=== PATIENT | male | born 1995 | race African-American/Black ===

== ENCOUNTER 2020-03-27 08:17 | Emergency (ER) | payer SELFPAY ==
[~2020-03-27] VITALS: Ht 185.4 cm; Wt 104.3 kg
[2020-03-27] MEDS ORDERED: SODIUM CHLORIDE 0.9% 1,000 ML IV ONE ×3 (08:42→09:51)
[2020-03-27 09:13] LABS: Basophils # (auto) 0.1 10 ^3/uL (0-0.2); Basophils % (auto) 0.6 % (0.0-2.0); Eosinophils # (auto) 0 10 ^3/uL (0-0.8); Eosinophils % (auto) 0.1 % (0.0-7.0); Hematocrit 50.7 % (41.0-53.0); Hemoglobin 16.8 g/dL (13.5-17.5); Lymphocytes # (auto) 0.9 10 ^3/uL (0.4-5.4); Lymphocytes % (auto) 5.8 % (10.0-50.0); Mean Corpuscular Hemoglobin 30.3 pg (28.0-32.0); Mean Corpuscular Hgb Conc. 33.2 g/dL (32.0-36.0); Mean Corpuscular Volume 91.1 fL (80.0-100.0); Monocytes # (auto) 0.8 10 ^3/uL (0-1.3); Monocytes % (auto) 5.3 % (0.0-12.0); Neutrophils # (auto) 13.3 10 ^3/uL (1.6-8.6); Neutrophils % (auto) 88.2 % (37.0-80.0); Platelet Count (auto) 233 10^3/uL (140-450); Red Blood Cells 5.56 10^6/uL (4.5-5.90); Red Cell Distribution Width 12.9 % (11.8-14.3); White Blood Cell 15.1 10^3/uL (4.4-10.8)
[2020-03-27 09:34] LABS: Albumin 4.4 g/dL (3.4-5.0); Anion Gap 6 (5-15); Blood Urea Nitrogen 14 mg/dL (7-18); Carbon Dioxide 26 mmol/L (21-32); Chloride 107 mmol/L (98-107); Glucose 121 mg/dL (74-106); Potassium 3.1 mmol/L (3.5-5.1); Sodium 139 mmol/L (136-145)
[2020-03-27 09:40] LABS: Alanine Aminotransferase 38 U/L (16-61); Alkaline Phosphatase 87 U/L (45-117); Aspartate Aminotransferase 28 U/L (15-37); Bilirubin, Total 0.8 mg/dL (0.2-1.0); GFR African American 90 mL/min; GFR Non-African American 75 mL/min
[2020-03-27] MEDS ORDERED: SODIUM CHLORIDE 0.9% 1,000 ML IVB ONE (09:51)
[2020-03-27] MEDS ORDERED: cefTRIAXone 1GM/50ML D5W 50 ML IV ONE (10:00)
[2020-03-27] MEDS ORDERED: metroNIDAZOLE 500MG/100ML 100 ML IV ONE (10:00)
[2020-03-27] MEDS ORDERED: POTASSIUM EFFERVESENT TAB 25 MEQ PO ONE (11:15)
[2020-03-27 12:26] LABS: Urine Bacteria NONE SEEN /hpf (None Seen); Urine Blood Negative /uL (Negative); Urine Specific Gravity 1.013 (1.001-1.035); Urine WBC 26 /hpf (0 - 3)
[2020-03-27 12:37] LABS: Alcohol, Urine < 3.0 mg/dL (0-10); Amphetamine Screen, Urine NEGATIVE (NEGATIVE); Barbiturate Scree,Urine NEGATIVE (NEGATIVE); Benzodiazephine Screen, Urine NEGATIVE (NEGATIVE); Cannabinoid Screen, Urine POSITIVE (NEGATIVE); Cocaine Screen, Urine NEGATIVE (NEGATIVE); Opiate Scree,Urine NEGATIVE (NEGATIVE); Phencyclidine Screen, Urine NEGATIVE (NEGATIVE)
[2020-03-27] MEDS ORDERED: ONDANSETRON HCL 4 MG/2 ML VIAL ONE (14:36)
[2020-03-27] MEDS ORDERED: ONDANSETRON HCL 4 MG/2 ML VIAL IV ONE (14:45)
[2020-03-27 15:10] VITALS: BP 138/82
== END 2020-03-27 15:26 | disposition home or self-care (01) ==
LOC: EDBD 08:17 → ER 08:17
DX: E86.0 Dehydration (principal); E87.6 Hypokalemia; D72.829 Elevated white blood cell count, unspecified; F12.20 Cannabis dependence, uncomplicated; W18.39XA Other fall on same level, initial encounter; Y93.E1 Activity, personal bathing and showering; Y92.89 Other specified places as the place of occurrence of the external cause; Y99.8 Other external cause status
CPT/HCPCS: 36415; 70450; 71045; 80053; 80307; 80320; 81001; 84484; 85025; 96361; 96365; 96368; 96375; 99285; J0696; J2405; J3490

== ENCOUNTER 2020-06-30 03:14 | Emergency (ER) | payer SELFPAY ==
[~2020-06-30] VITALS: Ht 188 cm; Wt 97.5 kg
[2020-06-30] MEDS ORDERED: LORazepam 2MG/ML-1ML VIAL IV ONE (03:30)
[2020-06-30 03:45] LABS: Urine WBC None Seen /hpf (0 - 3)
[2020-06-30] MEDS ORDERED: levETIRAcetam 500 MG/5ML INJ IV ONE (03:50)
[2020-06-30 03:54] LABS: Eosinophils # (auto) 0.2 10 ^3/uL (0-0.8); Lymphocytes # (auto) 5.7 10 ^3/uL (0.4-5.4); Mean Corpuscular Hemoglobin 30.8 pg (28.0-32.0); Monocytes # (auto) 1.4 10 ^3/uL (0-1.3)
[2020-06-30 03:57] LABS: Urine Bacteria NONE SEEN /hpf (None Seen); Urine Blood 2+ /uL (Negative); Urine Mucus FEW (None Seen); Urine Specific Gravity 1.012 (1.001-1.035)
[2020-06-30 04:13] LABS: Albumin 5.5 g/dL (3.4-5.0); Basophils # (auto) 0.1 10 ^3/uL (0-0.2); Basophils % (auto) 0.3 % (0.0-2.0); Calcium 9.6 mg/dL (8.5-10.1); Eosinophils % (auto) 0.6 % (0.0-7.0); Hematocrit 56.4 % (41.0-53.0); Hemoglobin 17.7 g/dL (13.5-17.5); Mean Corpuscular Hgb Conc. 31.5 g/dL (32.0-36.0); Neutrophils # (auto) 19.7 10 ^3/uL (1.6-8.6); Neutrophils % (auto) 73.1 % (37.0-80.0); Nucleated Red Blood Cells % 0.2 %; Platelet Count (auto) 336 10^3/uL (140-450); Potassium 4.3 mmol/L (3.5-5.1); Red Blood Cells 5.75 10^6/uL (4.5-5.90); Red Cell Distribution Width 13.6 % (11.8-14.3)
[2020-06-30 04:19] LABS: BUN/Creatinine Ratio 7.4; Bilirubin, Total 0.9 mg/dL (0.2-1.0); Total Protein 9.2 g/dL (6.4-8.2)
[2020-06-30 06:00] VITALS: BP 129/70
== END 2020-06-30 06:30 | disposition home or self-care (01) ==
LOC: EDUNIT# 03:14 → EDBD 03:14 → ER 03:17
DX: G40.409 Other generalized epilepsy and epileptic syndromes, not intractable, without status epilepticus (principal)
CPT/HCPCS: 36415; 70450; 80053; 81001; 85025; 93005; 96365; 96375; 99285; J1953; J2060; J7060

== ENCOUNTER 2022-05-20 02:57 | Emergency (ER) | payer SELFPAY ==
[~2022-05-20] VITALS: Ht 177.8 cm; Wt 104.5 kg
[2022-05-20] MEDS ORDERED: levETIRAcetam 500 MG/5ML INJ IV ONE (05:48)
[2022-05-20 06:43] LABS: Albumin 4.1 g/dL (3.4-5.0); Calcium 8.6 mg/dL (8.5-10.1); Potassium 3.3 mmol/L (3.5-5.1)
[2022-05-20 06:47] LABS: BUN/Creatinine Ratio 10.7; Bilirubin, Total 0.7 mg/dL (0.2-1.0); Total Protein 7.2 g/dL (6.4-8.2)
[2022-05-20 07:01] LABS: Basophils # (auto) 0.1 10 ^3/uL (0-0.2); Basophils % (auto) 0.6 % (0.0-2.0); Eosinophils # (auto) 0 10 ^3/uL (0-0.8); Eosinophils % (auto) 0.1 % (0.0-7.0); Hematocrit 48.9 % (41.0-53.0); Hemoglobin 16.1 g/dL (13.5-17.5); Lymphocytes # (auto) 1.1 10 ^3/uL (0.4-5.4); Lymphocytes % (auto) 6.8 % (10.0-50.0); Mean Corpuscular Hemoglobin 30.3 pg (28.0-32.0); Mean Corpuscular Hgb Conc. 32.9 g/dL (32.0-36.0); Mean Corpuscular Volume 92.2 fL (80.0-100.0); Monocytes # (auto) 1.1 10 ^3/uL (0-1.3); Monocytes % (auto) 6.7 % (0.0-12.0); Neutrophils # (auto) 13.8 10 ^3/uL (1.6-8.6); Neutrophils % (auto) 85.8 % (37.0-80.0); Red Cell Distribution Width 12.7 % (11.8-14.3); White Blood Cell 16.1 10^3/uL (4.4-10.8)
[2022-05-20] MEDS ORDERED: LEVE500T32 PO (07:32)
[2022-05-20 07:37] VITALS: BP 124/93
== END 2022-05-20 07:45 | disposition home or self-care (01) ==
LOC: EDBD 02:57 → ER 02:57
DX: G40.409 Other generalized epilepsy and epileptic syndromes, not intractable, without status epilepticus (principal)
CPT/HCPCS: 36415; 70450; 80053; 85025; 96365; 99284; J1953; J7060

== ENCOUNTER 2023-01-30 18:10 | Inpatient (IN) | payer MEDICAID, OTHER ==
[~2023-01-30] VITALS: Ht 188 cm; Wt 109.0 kg
[~2023-01-30 18:10] MED LIST: LEVE500T32 PO
[2023-01-30] MEDS ORDERED: SODIUM CHLORIDE 0.9% 1,000 ML IV ONE (18:45)
[2023-01-30 19:33] LABS: Hematocrit 50.1 % (41.0-53.0); Hemoglobin 16.9 g/dL (13.5-17.5); Mean Corpuscular Hemoglobin 30.6 pg (28.0-32.0); Mean Corpuscular Hgb Conc. 33.6 g/dL (32.0-36.0); Mean Corpuscular Volume 90.9 fL (80.0-100.0); Red Blood Cells 5.52 10^6/uL (4.5-5.90); Red Cell Distribution Width 12.7 % (11.8-14.3)
[2023-01-30] MEDS ORDERED: HALOPERIDOL LACTATE 5 MG/ML INJ VIAL IM ONE (19:45)
[2023-01-30] MEDS ORDERED: LORazepam 2MG/ML-1ML VIAL IM ONE (19:45)
[2023-01-30] MEDS ORDERED: diphenhdrAMINE HCL 50 MG/1 ML VL IM ONE (19:45)
[2023-01-30 19:46] LABS: INR 0.99 (0.9-1.15)
[2023-01-30 19:49] LABS: White Blood Cell 32.6 10^3/uL (4.4-10.8)
[2023-01-30 19:50] LABS: Basophils % (manual) 0 (0.0-2.0); Blast Cells 0; Eosinophils % (manual) 0 (0-7); Metamyelocytes % 0; Myelocytes % 0; Promyelocytes % 0; Reactive Lymphocytes 0
[2023-01-30 19:51] LABS: Alanine Aminotransferase 57 U/L (16-61); Albumin 4.5 g/dL (3.4-5.0); Anion Gap 12 (5-15); Aspartate Aminotransferase 103 U/L (15-37); BUN/Creatinine Ratio 10.2 (10.0-20.0); Blood Alcohol < 3.0 mg/dL (0-5); Blood Urea Nitrogen 21 mg/dL (7-18); Calcium 8.9 mg/dL (8.5-10.1); Carbon Dioxide 20 mmol/L (21-32); Chloride 108 mmol/L (98-107); GFR African American 50 mL/min; GFR Non-African American 42 mL/min; Glucose 97 mg/dL (74-106); Lipase 52 U/L (73-393); Magnesium 3.4 mg/dL (1.6-2.6); Potassium 4.7 mmol/L (3.5-5.1); Sodium 140 mmol/L (136-145)
[2023-01-30 19:54] LABS: Alkaline Phosphatase 72 U/L (45-117); Bilirubin, Total 1.2 mg/dL (0.2-1.0); Phosphorus 4.7 mg/dL (2.5-4.90); Total Protein 7.8 g/dL (6.4-8.2)
[2023-01-30 20:07] LABS: Acetaminophen < 2.0 ug/mL (10-30); Salicylate < 1.7 mg/dL (2.8-20.0)
[2023-01-30 20:19] LABS: Band Neutrophils % (manual) 8; Lymphocytes % (manual) 5 (10.0-50.0); Monocytes % (manual) 6 (0-12)
[2023-01-30] MEDS ORDERED: ASPirin 300 MG RECTAL SUPP PR ONE (20:30)
[2023-01-30] MEDS ORDERED: LORazepam 2MG/ML-1ML VIAL IV ONE ×2 (20:45)
[2023-01-30] MEDS ORDERED: KETAMINE 50mg/ML 10ml Vial (500mg/10ml) IM ONE ×2 (20:45→21:15)
[2023-01-30] MEDS ORDERED: SODIUM CHLORIDE 0.9% 3,450 ML IV ONE (21:15)
[2023-01-30] MEDS ORDERED: VANCOMYCIN PER PHARMACY 0 MG IV SCH (22:30)
[2023-01-30] MEDS ORDERED: cefTRIAXone 1GM/50ML D5W 50 ML IV ONE (22:30)
[2023-01-30] MEDS ORDERED: MORPHINE SULFATE INJ 2 MG/ml SYRG IV PRN (23:00)
[2023-01-30] MEDS ORDERED: VANCOMYCIN 1GM/250ML 250 ML IV NR (23:00)
[2023-01-30] MEDS ORDERED: NITROGLYCERIN 0.4 MG SL TAB SL PRN (23:00)
[2023-01-30] MEDS ORDERED: ONDANSETRON HCL 4 MG/2 ML VIAL IV PRN (23:00)
[2023-01-31] MEDS: SODIUM CHLORIDE 0.9% 1,000 ML IV SCH ×5 (03:35→22:05)
[2023-01-31 06:01] LABS: Urine Bacteria NONE SEEN /hpf (None Seen); Urine Blood 3+ /uL (Negative); Urine Specific Gravity 1.013 (1.001-1.035); Urine WBC 10 /hpf (0 - 3)
[2023-01-31] MEDS: HEPARIN SODIUM (PORCINE) 5000 UNITS/ML 1ML VIAL SC SCH ×3 (06:03→22:11)
[2023-01-31 06:44] LABS: Basophils # (auto) 0.3 10 ^3/uL (0-0.2); Basophils % (auto) 1.2 % (0.0-2.0); Eosinophils # (auto) 0 10 ^3/uL (0-0.8); Hematocrit 46.2 % (41.0-53.0); Hemoglobin 15.5 g/dL (13.5-17.5); Lymphocytes # (auto) 1.6 10 ^3/uL (0.4-5.4); Lymphocytes % (auto) 5.8 % (10.0-50.0); Mean Corpuscular Hemoglobin 30.9 pg (28.0-32.0); Mean Corpuscular Hgb Conc. 33.5 g/dL (32.0-36.0); Mean Corpuscular Volume 92.4 fL (80.0-100.0); Monocytes # (auto) 2.1 10 ^3/uL (0-1.3); Monocytes % (auto) 7.9 % (0.0-12.0); Neutrophils # (auto) 22.8 10 ^3/uL (1.6-8.6); Neutrophils % (auto) 85.1 % (37.0-80.0); Nucleated Red Blood Cells % 0.1 %; Red Cell Distribution Width 12.4 % (11.8-14.3); White Blood Cell 26.8 10^3/uL (4.4-10.8)
[2023-01-31 06:56] LABS: Albumin 3.6 g/dL (3.4-5.0); BUN/Creatinine Ratio 12.3 (10.0-20.0); Calcium 8.9 mg/dL (8.5-10.1); Potassium 4.8 mmol/L (3.5-5.1)
[2023-01-31 07:22] LABS: Bilirubin, Total 1.7 mg/dL (0.2-1.0)
[2023-01-31] MEDS ORDERED: VANCOMYCIN 1GM/250ML 250 ML IV ONE (08:30)
[2023-01-31] MEDS ORDERED: HEPARIN SODIUM (PORCINE) 5000 UNITS/ML 1ML VIAL SC SCH (10:00)
[2023-01-31] MEDS: PANTOPRAZOLE 40 MG/10 ML VIAL INJ IV SCH (10:52)
[2023-01-31] MEDS: cefTRIAXone 1GM/50ML D5W 50 ML IV SCH (11:04)
[2023-01-31] MEDS ORDERED: LORazepam 2MG/ML-1ML VIAL IV PRN (12:45)
[2023-01-31 16:43] LABS: Phosphorus 3.4 mg/dL (2.5-4.90)
[2023-01-31 22:03] LABS: Calcium 8.9 mg/dL (8.5-10.1); Potassium 4.6 mmol/L (3.5-5.1)
[2023-01-31] MEDS: carBAMazepine 200 MG TAB PO SCH (22:11)
[2023-01-31 22:26] LABS: BUN/Creatinine Ratio 12.8 (10.0-20.0)
[2023-02-01] MEDS: VANCOMYCIN 1GM/250ML 250 ML IV SCH ×3 (01:26→20:46)
[2023-02-01] MEDS: SODIUM CHLORIDE 0.9% 1,000 ML IV SCH ×5 (01:30→21:30)
[2023-02-01 06:07] LABS: Calcium 9.2 mg/dL (8.5-10.1); Potassium 4.8 mmol/L (3.5-5.1)
[2023-02-01 06:09] LABS: BUN/Creatinine Ratio 14.5 (10.0-20.0)
[2023-02-01] MEDS: cefTRIAXone 1GM/50ML D5W 50 ML IV SCH (08:39)
[2023-02-01] MEDS: HEPARIN SODIUM (PORCINE) 5000 UNITS/ML 1ML VIAL SC SCH ×2 (09:41→22:14)
[2023-02-01] MEDS: carBAMazepine 200 MG TAB PO SCH ×2 (09:43→22:04)
[2023-02-01] MEDS: PANTOPRAZOLE 40 MG/10 ML VIAL INJ IV SCH (09:43)
[2023-02-01 17:00] VITALS: BP 142/87
[2023-02-01] MEDS ORDERED: CARB200T PO (20:50)
[2023-02-01 22:00] VITALS: BP 135/89
[2023-02-02] MEDS: SODIUM CHLORIDE 0.9% 1,000 ML IV SCH ×4 (03:26→16:08)
[2023-02-02 05:00] VITALS: BP 115/73
[2023-02-02] MEDS: VANCOMYCIN 1GM/250ML 250 ML IV SCH ×3 (05:39→21:56)
[2023-02-02 06:39] LABS: Basophils # (auto) 0.1 10 ^3/uL (0-0.2); Basophils % (auto) 0.9 % (0.0-2.0); Eosinophils # (auto) 0.2 10 ^3/uL (0-0.8); Eosinophils % (auto) 1.4 % (0.0-7.0); Hematocrit 41.9 % (41.0-53.0); Hemoglobin 14.3 g/dL (13.5-17.5); Lymphocytes # (auto) 2.3 10 ^3/uL (0.4-5.4); Mean Corpuscular Hemoglobin 30.8 pg (28.0-32.0); Mean Corpuscular Hgb Conc. 34.1 g/dL (32.0-36.0); Mean Corpuscular Volume 90.3 fL (80.0-100.0); Monocytes # (auto) 1.1 10 ^3/uL (0-1.3); Monocytes % (auto) 9.8 % (0.0-12.0); Neutrophils # (auto) 7.9 10 ^3/uL (1.6-8.6); Neutrophils % (auto) 67.9 % (37.0-80.0); Nucleated Red Blood Cells % 0.2 %; Red Blood Cells 4.64 10^6/uL (4.5-5.90); Red Cell Distribution Width 12.1 % (11.8-14.3); White Blood Cell 11.6 10^3/uL (4.4-10.8)
[2023-02-02 07:02] LABS: Albumin 3.3 g/dL (3.4-5.0); BUN/Creatinine Ratio 14.6 (10.0-20.0); Bilirubin, Total 1.4 mg/dL (0.2-1.0); Calcium 8.5 mg/dL (8.5-10.1)
[2023-02-02] MEDS: cefTRIAXone 1GM/50ML D5W 50 ML IV SCH (09:09)
[2023-02-02 09:20] VITALS: BP 128/72
[2023-02-02] MEDS: PANTOPRAZOLE 40 MG/10 ML VIAL INJ IV SCH (10:13)
[2023-02-02] MEDS: carBAMazepine 200 MG TAB PO SCH ×2 (10:14→21:55)
[2023-02-02] MEDS: HEPARIN SODIUM (PORCINE) 5000 UNITS/ML 1ML VIAL SC SCH ×2 (10:19→21:57)
[2023-02-02 12:40] VITALS: BP 138/77
[2023-02-02 17:00] VITALS: BP 126/78
[2023-02-02 22:00] VITALS: BP 147/81
[2023-02-03] MEDS ORDERED: ACETAMINOPHEN 325 MG TAB PO PRN (00:30)
[2023-02-03] MEDS: SODIUM CHLORIDE 0.9% 1,000 ML IV SCH ×6 (01:30→23:30)
[2023-02-03 05:00] VITALS: BP 136/78
[2023-02-03] MEDS: VANCOMYCIN 1GM/250ML 250 ML IV SCH ×3 (05:06→21:08)
[2023-02-03] MEDS: carBAMazepine 200 MG TAB PO SCH ×2 (08:16→21:13)
[2023-02-03] MEDS: cefTRIAXone 1GM/50ML D5W 50 ML IV SCH ×3 (08:16→13:02)
[2023-02-03] MEDS: PANTOPRAZOLE 40 MG/10 ML VIAL INJ IV SCH (08:16)
[2023-02-03] MEDS: HEPARIN SODIUM (PORCINE) 5000 UNITS/ML 1ML VIAL SC SCH ×2 (08:22→21:15)
[2023-02-03 09:00] VITALS: BP 152/89
[2023-02-03 13:00] VITALS: BP 118/70
[2023-02-03 13:15] LABS: Hepatitis C Antibody Negative (Negative)
[2023-02-03 13:22] LABS: Basophils # (auto) 0.1 10 ^3/uL (0-0.2); Eosinophils # (auto) 0.2 10 ^3/uL (0-0.8); Eosinophils % (auto) 2.3 % (0.0-7.0); Hematocrit 46.3 % (41.0-53.0); Hemoglobin 15.9 g/dL (13.5-17.5); Lymphocytes # (auto) 1.6 10 ^3/uL (0.4-5.4); Lymphocytes % (auto) 19.3 % (10.0-50.0); Mean Corpuscular Hgb Conc. 34.3 g/dL (32.0-36.0); Mean Corpuscular Volume 90.3 fL (80.0-100.0); Monocytes # (auto) 0.7 10 ^3/uL (0-1.3); Monocytes % (auto) 8.3 % (0.0-12.0); Neutrophils # (auto) 5.6 10 ^3/uL (1.6-8.6); Neutrophils % (auto) 69.1 % (37.0-80.0); Nucleated Red Blood Cells % 0.5 %; Red Blood Cells 5.13 10^6/uL (4.5-5.90); Red Cell Distribution Width 12.2 % (11.8-14.3); White Blood Cell 8.1 10^3/uL (4.4-10.8)
[2023-02-03 14:55] LABS: Calcium 9.2 mg/dL (8.5-10.1)
[2023-02-03 15:28] LABS: Albumin 3.8 g/dL (3.4-5.0); BUN/Creatinine Ratio 11.2 (10.0-20.0); Bilirubin, Total 0.9 mg/dL (0.2-1.0)
[2023-02-03 17:00] VITALS: BP 142/77
[2023-02-03 22:00] VITALS: BP 144/93
[2023-02-04] MEDS: SODIUM CHLORIDE 0.9% 1,000 ML IV SCH ×4 (04:30→19:30)
[2023-02-04 05:00] VITALS: BP 146/83
[2023-02-04 05:46] LABS: Basophils # (auto) 0.1 10 ^3/uL (0-0.2); Basophils % (auto) 1.2 % (0.0-2.0); Eosinophils # (auto) 0.3 10 ^3/uL (0-0.8); Eosinophils % (auto) 3.8 % (0.0-7.0); Hematocrit 44.7 % (41.0-53.0); Hemoglobin 15.4 g/dL (13.5-17.5); Lymphocytes # (auto) 1.9 10 ^3/uL (0.4-5.4); Lymphocytes % (auto) 20.9 % (10.0-50.0); Mean Corpuscular Hemoglobin 31.4 pg (28.0-32.0); Mean Corpuscular Hgb Conc. 34.4 g/dL (32.0-36.0); Mean Corpuscular Volume 91.2 fL (80.0-100.0); Monocytes # (auto) 0.7 10 ^3/uL (0-1.3); Monocytes % (auto) 7.5 % (0.0-12.0); Neutrophils % (auto) 66.6 % (37.0-80.0); Nucleated Red Blood Cells % 0.1 %; Red Cell Distribution Width 12.3 % (11.8-14.3)
[2023-02-04 06:11] LABS: Anion Gap 13 (5-15); BUN/Creatinine Ratio 12.2 (10.0-20.0); Blood Urea Nitrogen 10 mg/dL (7-18); Calcium 8.9 mg/dL (8.5-10.1); Carbon Dioxide 18 mmol/L (21-32); Chloride 110 mmol/L (98-107); GFR African American 146 mL/min; GFR Non-African American 121 mL/min; Glucose 85 mg/dL (74-106); Potassium 4.2 mmol/L (3.5-5.1); Sodium 141 mmol/L (136-145)
[2023-02-04] MEDS: VANCOMYCIN 1GM/250ML 250 ML IV SCH (06:37)
[2023-02-04 07:32] LABS: Albumin 3.7 g/dL (3.4-5.0)
[2023-02-04 07:43] LABS: Bilirubin, Total 0.9 mg/dL (0.2-1.0); Total Protein 6.7 g/dL (6.4-8.2)
[2023-02-04 09:00] VITALS: BP 146/94
[2023-02-04] MEDS: cefTRIAXone 1GM/50ML D5W 50 ML IV SCH (10:49)
[2023-02-04] MEDS: PANTOPRAZOLE 40 MG/10 ML VIAL INJ IV SCH (10:51)
[2023-02-04] MEDS: carBAMazepine 200 MG TAB PO SCH ×2 (10:52→22:24)
[2023-02-04] MEDS: HEPARIN SODIUM (PORCINE) 5000 UNITS/ML 1ML VIAL SC SCH ×2 (10:56→22:25)
[2023-02-04 12:33] VITALS: BP 155/89
[2023-02-04 16:21] VITALS: BP 133/72
[2023-02-04 22:00] VITALS: BP 131/87
[2023-02-05] MEDS: SODIUM CHLORIDE 0.9% 1,000 ML IV SCH ×3 (00:30→10:30)
[2023-02-05 05:00] VITALS: BP 128/77
[2023-02-05 06:12] LABS: Albumin 3.5 g/dL (3.4-5.0); Potassium 3.9 mmol/L (3.5-5.1)
[2023-02-05] MEDS: carBAMazepine 200 MG TAB PO SCH (06:21)
[2023-02-05 06:39] LABS: Bilirubin, Total 0.8 mg/dL (0.2-1.0); Total Protein 6.4 g/dL (6.4-8.2)
[2023-02-05 07:09] LABS: BUN/Creatinine Ratio 11.9 (10.0-20.0)
[2023-02-05 09:00] VITALS: BP 141/88
[2023-02-05] MEDS: cefTRIAXone 1GM/50ML D5W 50 ML IV SCH (10:33)
[2023-02-05] MEDS: PANTOPRAZOLE 40 MG/10 ML VIAL INJ IV SCH (10:33)
[2023-02-05] MEDS: HEPARIN SODIUM (PORCINE) 5000 UNITS/ML 1ML VIAL SC SCH (10:46)
[2023-02-05] MEDS ORDERED: CARB200T5 PO ×2 (11:03)
[2023-02-05] MEDS ORDERED: LEVO500T31 PO (11:03)
[2023-02-05] MEDS ORDERED: CARB200T4 PO (13:12)
== END 2023-02-05 12:15 | disposition home or self-care (01) | DRG 720 ==
LOC: EDBD 18:10 → ER 18:10 → TELE 23:01 → WEST WING 02-01 13:18
PROVIDERS: ADMIT Nurse Practitioner Family; ATTEND Family Medicine
PROC: 4A00X4Z Measurement of Central Nervous Electrical Activity, External Approach (ICD-10-PCS; principal; 2023-02-04)
DX: A41.9 Sepsis, unspecified organism (principal); N17.0 Acute kidney failure with tubular necrosis; R65.21 Severe sepsis with septic shock; G40.401 Other generalized epilepsy and epileptic syndromes, not intractable, with status epilepticus; I21.4 Non-ST elevation (NSTEMI) myocardial infarction; M62.82 Rhabdomyolysis; N17.9 Acute kidney failure, unspecified; N39.0 Urinary tract infection, site not specified; R09.02 Hypoxemia
CPT/HCPCS: 36415; 70450; 71045; 76705; 80048; 80053; 80202; 80320; 80329; 81001; 82040; 82247; 82310; 82550; 83605; 83690; 83735; 84075; 84100; 84155; 84450; 84460; 84484; 85007; 85025; 85027; 85610; 86803; 87040; 87077; 87086; 87186; 87340; 93005; 95819; 96365; 96366; 96368; 96372; 96375; 96376; 99291; C9113; G0378; J0696; J7060

== ENCOUNTER 2025-05-04 03:26 | Inpatient (IN) | payer MEDICAID ==
[~2025-05-04] VITALS: Ht 175.3 cm; Wt 50.0 kg
[~2025-05-04 03:26] MED LIST changes: +CARB200T PO; +CARB200T4 PO; -LEVE500T32 PO; +LEVE500T40 PO; +LEVO500T31 PO
--- NOTE | 2025-05-04 03:59 | ED.PDOC ---
HPI (NEURO) HPI Comments 30-year-old male with a history of UTIs, and seizures brought in by emergency services with a chief complaint of a seizure with the associated nausea, vomiting, and headache. Per EMS patient had a seizure in his sleep, it is now postictal 30 blood sugar of 109. Patient is noted to be taking Tegretol, but notes use was to be taken twice daily but it has only been taking it once. Patient is noted to be alert and oriented x4, with a answering questions appropriately at this time. Patient denies any diarrhea, abdominal pain, blurry vision, urinary symptoms, or any other associated symptoms, modifying factors at this time. PHYSICAL EXAM: General: Awake, alert and oriented. No acute distress. Skin: Skin in warm, dry and intact. Appropriate color for ethnicity. HEENT: The head is normocephalic and atraumatic. Conjunctivae are clear without exudates or hemorrhage. Sclera is non-icteric. EOM are intact. No signs of nystagmus. Eyelids are normal in appearance without swelling or lesions. Oral mucosa is pink and moist Neck: The neck is supple with normal range of motion. No JVD. Cardiac: Heart rate and rhythm are normal. No murmurs, gallops, or rubs are auscultated. Respiratory: No signs of respiratory distress. Lung sounds are clear in all lobes bilaterally without rales, rhonchi, or wheezes. Abdominal: Abdomen is soft, non-tender without distention, guarding or rigidity. Bowel sounds are present and normoactive in all four quadrants. Extremities: Upper and lower extremities are atraumatic in appearance without deformity or edema. Neurological: The patient is awake, alert and oriented to person, place, and time with normal speech. Speech is clear. There is no facial asymmetry. Psychiatric: Appropriate mood and affect. Good judgement and insight. REVIEW OF SYSTEMS: No fever, no chills, or fatigue HEENT: No sore throat, no earache, no congestion, no neck pain. Cardiac: No chest pain. No palpitations. Lungs: No shortness of breath, no cough. GI: + nausea, + vomiting, no diarrhea, no constipation, no abdominal pain : No dysuria, frequency, or urgency. No hematuria. Musculoskeletal: No joint pain , no joint swelling, no extremity edema. Skin: No rash, no itching. Neuro: + headache, no dizziness, no weakness, + seizure Chief Complaint: Seizure Time Seen by MD: 03:54 Primary Care Provider: UNK Reviewed Notes: Nurses Notes, Fretted Instrument Maker Hand Notes, Medications, Allergies Information Source: Patient, Emergency Med Personnel Mode of Arrival: EMS Severity: Moderate Dizziness/Weakness Severity: Does not affect activitie Headache Severity: Mild Timing: Hours Duration: Since onset, Hours Prehospital treatment: 12 Lead EKG, Accucheck, Institutional Custodian Seizure Quality: Tonic-clonic Headache Quality: Throbbing Headache Location: Generalized Weakness Location: Generalized Numbness Location: Generalized Seizure Location: Generalized Onset: While asleep Circumstances: Spontaneous Symptoms: None Before: Normal After: Normal Mentation History of: Seizure Disorder Modifying factors: Nothing Associated Signs and Symptoms: Headache, Nausea, Vomiting Past Medical History PAST MEDICAL HISTORY: Seizures Surgical History: Denies all surgeries Family History Family History: Reviewed,noncontributory to illness Social History Smoker: Non-Smoker Alcohol: Denies ETOH Use Drugs: Denies Drug Use Lives In: Home Was a procedure done? Was a procedure done?: No Differential Diagnosis (SZ) Seizure: Psychogenic Seizure, Alcohol Withdrawl, Closed Head Injury, CVA/TIA, Drug Ingestion, Syncope, Encephalopathy CVA: CVA, Electrolyte Imbalance, Encephalopathy, Hypoglycemia, TIA General Weakness: Anemia, CVA, Dehydration, Electrolyte imbalance, E ncephalopathy, Hypoglycemia, Pulmonary embolus, TIA Headache: Cluster, Migraine, Closed Head Injury, CVA, Epidural Hemorrhage, Intracerebral Hemorrhage, Subarachnoid Hemorrhage, Subdural Hemorrhage, Post- Traumatic X-Ray, Labs, Meds, VS Vital Signs Date Time Temp Pulse Resp B/P (MAP) Pulse Ox O2 Delivery O2 Flow Rate FiO2 05/04/25 07:35 85 20 96 Room Air* 0 21 05/04/25 07:33 97.8 85 21 133/82 (99) 95 97.8 05/04/25 06:04 98.3 107 20 148/77 (100) 95 98.3 05/04/25 06:04 100 20 95 Room Air* 0 21 05/04/25 03:34 98.8 90 18 130/87 99 98.8 Lab Test 05/04/25 04:07 Range/Units White Blood Count 7.3 4.4-10.8 10^3/uL Red Blood Count 5.39 4.5-5.90 10^6/uL Hemoglobin 16.7 13.5-17.5 g/dL Hematocrit 49.0 41.0-53.0 % Mean Corpuscular Volume 90.8 80.0-100.0 fL Mean Corpuscular Hemoglobin 31.0 28.0-32.0 pg Mean Corpuscular Hemoglobin Concent 34.2 32.0-36.0 g/dL Red Cell Distribution Width 12.8 11.8-14.3 % Platelet Count 215 140-450 10^3/uL Mean Platelet Volume 8.8 6.9-10.8 fL Neutrophils (%) (Auto) 69.2 37.0-80.0 % Lymphocytes (%) (Auto) 20.6 10.0-50.0 % Monocytes (%) (Auto) 8.5 0.0-12.0 % Eosinophils (%) (Auto) 1.4 0.0-7.0 % Basophils (%) (Auto) 0.3 0.0-2.0 % Neutrophils # (Auto) 5.0 1.6-8.6 10 ^3/uL Lymphocytes # (Auto) 1.5 0.4-5.4 10 ^3/uL Monocytes # (Auto) 0.6 0-1.3 10 ^3/uL Eosinophils # (Auto) 0.1 0-0.8 10 ^3/uL Basophils # (Auto) 0 0-0.2 10 ^3/uL Nucleated Red Blood Cells 0.2 % Sodium Level 142 136-145 mmol/L Potassium Level 3.3 L 3.5-5.1 mmol/L Chloride Level 104 98-107 mmol/L Carbon Dioxide Level 26 20-31 mmol/L Anion Gap 12 5-15 Blood Urea Nitrogen 15 9-23 mg/dL Creatinine 1.40 H 0.700-1.30 mg/dL Glomerular Filtration Rate Calc 70 >90 mL/min BUN/Creatinine Ratio 10.7 10.0-20.0 Serum Glucose 100 74-106 mg/dL Calcium Level 9.4 8.7-10.4 mg/dL Total Bilirubin 0.5 0.2-1.0 mg/dL Aspartate Amino Transferase (AST) 27 13-40 U/L Alanine Aminotransferase (ALT) 35 7-40 U/L Alkaline Phosphatase 82 46-116 U/L Total Protein 7.0 5.7-8.2 g/dL Albumin 4.7 3.2-4.8 g/dL Current Medications Medications (Trade) Dose Ordered Sig/Etelvina Route Start Time Stop Time Status Last Admin Sodium Chloride 1,000 ml @ 1,000 mls/hr Q1H ONCE IV 05/04/25 04:00 05/04/25 04:59 DC 05/04/25 04:00 Levetiracetam 100 ml @ 400 mls/hr ONCE ONCE IV 05/04/25 04:00 05/04/25 04:14 DC 05/04/25 04:00 Ondansetron HCl (Zofran) 4 mg ONCE ONCE IV 05/04/25 04:00 05/04/25 04:01 DC 05/04/25 04:00 X-Ray, Labs, Meds, VS Comment Course in the emergency department patient had a seizure takes medications all the time his CT head is normal x-rays of his rest is normal CBC CBC is negative CMP normal Potassium at 3.3 rest is normal Patient was admitted but he rather go home is feeling much better patient has been observed for several hours he is alert conscious and ambulatory Time of 1ST Reevaluation: 04:25 Reevaluation 1ST: Unchanged Patient Education/Counseling: Diagnosis, Treatment, Need For Follow Up Family Education/Counseling: No Family Present Departure 1 Departure Time of Disposition: 04:54 Impression: Primary Impression: Breakthrough seizure Additional Impression: Seizure disorder Disposition: 09 ADMITTED INPATIENT Condition: Fair Comments 30-year-old male with a history of seizure disorder with breakthrough seizure today Patient currently neurologically intact Patient's last seizure was in 2022 Patient admitted for further treatment, evaluation, monitoring and Neurology consultation Critical Care Note Critical Care Time?: No Stability Stability form required: No Heart Score Heart Score: Heart Score Response (Comments) Value History N/A 0 EKG N/A 0 Age <45 0 Risk Factors 1 or 2 risk factors 1 Troponin N/A 0 Total 1 I personally scribed for KIESHA GOOD MD ([email or web address]) on 05/04/25 at 03:59. Electronically submitted by Rocco Hurd ([email or web address]). KIESHA GOOD MD May 04, 2025 03:59 SAMANTHA MENDES MD May 04, 2025 09:45
[2025-05-04] MEDS: SODIUM CHLORIDE 0.9% 1,000 ML IV ONE ×2 (04:00→11:01)
[2025-05-04] MEDS: levETIRAcetam 1000 mg/100ml 100 ML IV ONE (04:00)
[2025-05-04] MEDS: ACETAMINOPHEN 325 MG TAB PO ONE (04:00)
[2025-05-04] MEDS: ONDANSETRON HCL 4 MG/2 ML VIAL IV ONE (04:00)
[2025-05-04 04:41] LABS: Hematocrit 49.0 % (41.0-53.0); Hemoglobin 16.7 g/dL (13.5-17.5); Mean Corpuscular Hemoglobin 31.0 pg (28.0-32.0); Mean Corpuscular Volume 90.8 fL (80.0-100.0); Nucleated Red Blood Cells % 0.2 %
[2025-05-04 05:02] LABS: Alanine Aminotransferase 35 U/L (7-40); Albumin 4.7 g/dL (3.2-4.8); Alkaline Phosphatase 82 U/L (46-116); Anion Gap 12 (5-15); BUN/Creatinine Ratio 10.7 (10.0-20.0); Bilirubin, Total 0.5 mg/dL (0.2-1.0); Blood Urea Nitrogen 15 mg/dL (9-23); Calcium 9.4 mg/dL (8.7-10.4); Carbon Dioxide 26 mmol/L (20-31); Chloride 104 mmol/L (98-107); Glucose 100 mg/dL (74-106); Sodium 142 mmol/L (136-145); Total Protein 7.0 g/dL (5.7-8.2)
[2025-05-04 05:06] LABS: Potassium 3.3 mmol/L (3.5-5.1)
[2025-05-04 06:04] VITALS: PULSE 100; RESP 20; O2SAT 95
--- NOTE | 2025-05-04 06:51 | DVH ---
EXAM: XY L WRIST 2 VIEW XRAY CLINICAL INDICATION: Left wrist injury TECHNIQUE: XY L WRIST 2 VIEW XRAY Comparison: None FINDINGS/IMPRESSION: There is no evidence of acute fracture or dislocation. The visualized joint space is well maintained. The alignment is anatomical. There is no radiopaque foreign body.
--- NOTE | 2025-05-04 07:14 | DVH ---
EXAM: CT HEAD WITHOUT CONTRAST INDICATION: Seizure, headache TECHNIQUE: CT of the head without intravenous contrast. Coronal and sagittal reformatted images are s ubmitted. Radiation Dose : 1. Head: CT Dose: CTDI volume is 70.79 mGy. Dose-length product is 1.43 mGy*cm The dose indicators for CT are the volume Computed Tomography (CT) Dose Index (CTDIvol) and the Dose Length Product (DLP), and are measured in units of mGy and mGy-cm, respectively. These indicators are not patient dose, but values generated from the CT scanner acquisition factors. The report includes radiation exposure data for exposures received during this examination. All CT scans at this medical facility are performed using dose modulation techniques as appropriate to a performed exam including the following: Automated exposure control was utilized; adjustment of the MA and/or KV according to patient size; and use of iterative reconstruction technique. COMPARISON: CT HEAD WITHOUT CONTRAST on DOS: 01/30/23 FINDINGS: There is no evidence of acute intracranial hemorrhage, extra-axial collection, mass effect, midline s hift, herniation or hydrocephalus. The ventricles, sulci and cisterns are age appropriate. The anderson-white differentiation is intact. The visualized paranasal sinuses and mastoid air cells are clear. No depressed calvarial fracture. The surrounding soft tissues are unremarkable. IMPRESSION: 1. No evidence of acute intracranial abnormality.
[2025-05-04 07:33] VITALS: TEMP 97.8
[2025-05-04 07:35] VITALS: PULSE 85; RESP 20; O2SAT 96
[2025-05-04] MEDS ORDERED: ONDANSETRON HCL 4 MG/2 ML VIAL IV PRN (10:15)
[2025-05-04] MEDS ORDERED: MORPHINE SULFATE INJ 2 MG/ml SYRG IV PRN (10:15)
[2025-05-04] MEDS ORDERED: DOCUSATE SOD 100 MG CAP PO PRN (10:15)
[2025-05-04] MEDS ORDERED: LORazepam 2MG/ML-1ML VIAL IV PRN (10:15)
[2025-05-04] MEDS ORDERED: ACETAMINOPHEN 325 MG TAB PO PRN (10:15)
[2025-05-04] MEDS ORDERED: NITROGLYCERIN 0.4 MG SL TAB SL PRN (10:15)
[2025-05-04 10:37] LABS: Urine Protein, UAD Negative (Negative)
[2025-05-04 10:40] LABS: Cannabinoid Screen, Urine Pos (NEGATIVE)
[2025-05-04 10:42] LABS: Amphetamine Screen, Urine Neg (NEGATIVE); Barbiturate Scree,Urine Neg (NEGATIVE); Benzodiazephine Screen, Urine Neg (NEGATIVE); Cocaine Screen, Urine Neg (NEGATIVE); Opiate Scree,Urine Neg (NEGATIVE); Phencyclidine Screen, Urine Neg (NEGATIVE)
--- NOTE | 2025-05-04 10:46 | DVHHP2 ---
History of Present Illness Reason for Visit: Seizure History of Present Illness Federico Kim is a 30-year-old male with past medical history of seizures, who was brought to the hospital by EMS for a seizure. The patient is drowsy at time of assessment. Mother and girlfriend are at the bedside, most of the history was obtained from them. The girlfriend was with him when it happened. She states they were sleeping. She woke up, he was diaphoretic, she thought he was putting his arm around her but then he moved again and that is when she realized he was having a seizure and called for EMS. Mother states he did not start having seizures until [id number]. He got COVID and then a couple months later he had his first seizure. He was taking Keppra, but the side effects were too severe so he switched to Tegretol. He should be taking 100mg PO TID, but he is taking 100mg PO BID. It is not clear why he is not taking the medication TID, patient was not able to answer that question and the girlfriend did not realize he was supposed to be taking it that much, she thought it was just BID. [employer] MEMBER: Seizure Past Surgical History: None Smoke: No ALCOHOL: rare Drugs: Marijuana Lives: with Family Domestic Violence: Neg Review of Systems Constitutional: No: Fever, Chills, Sweats, Weakness, Malaise, Other Eyes: No: Pain, Vision change, Conjunctivae inflammation, Eyelid inflammation, Other, Redness ENT: No: Ear pain, Ear discharge, Nose pain, Nose discharge, Nose congestion, Mouth pain, Mouth swelling, Throat pain, Throat swelling, Other Respiratory: No: Cough, Dry, Shortness of breath, SOB with excertion, Wheezing, Hemoptysis, Pleuritic Pain, Sputum, Wheezing, Other Cardiovascular: No: Chest Pain, Palpitations, Orthopnea, Paroxysmal Noc. Dyspnea, Edema, Lt Headedness, Other Gastrointestinal: No: Nausea, Vomiting, Abdominal Pain, Diarrhea, Constipation, Melena, Hematochezia, Other Genitourinary: No Dysuria, No Frequency, No Incontinence, No Hematuria, No Retention, No Other Musculoskeletal: No: other, neck pain, shoulder pain, arm pain, back pain, hand pain, leg pain, foot pain Skin: No: Rash, Lesions, Jaundice, Bruising, Other Neurological: Seizures; No: Weakness, Numbness, Incoordination, Change in speech, Confusion, Other Allergies: Coded Allergies: NO KNOWN ALLERGIES (Unverified , 06/30/20) Medications Current Medications Medications Dose Ordered Sig/Etelvina Route Start Time Stop Time Status Last Admin Dose Admin Sodium Chloride 10 ml Q8HR IV 05/04/25 14:00 UNV Acetaminophen/ Hydrocodone Bitart 1 tab Q4HP PRN PO 05/04/25 10:15 UNV Ondansetron HCl 4 mg Q4HP PRN IV 05/04/25 10:15 UNV Docusate Sodium 100 mg BIDPRN PRN PO 05/04/25 10:15 UNV Acetaminophen 650 mg Q6HP PRN PO 05/04/25 10:15 UNV Nitroglycerin 0.4 mg Q5MINP PRN SL 05/04/25 10:15 UNV Morphine Sulfate 2 mg Q30M PRN IV 05/04/25 10:15 UNV Carbamazepine 100 mg TID PO 05/04/25 14:00 UNV Exam Vital Signs Vital Signs Date Time Temp Pulse Resp B/P (MAP) Pulse Ox O2 Delivery O2 Flow Rate FiO2 05/04/25 07:33 97.8 85 21 133/82 (99) 95 97.8 05/04/25 06:04 Room Air* 0 21 General Appearance: Oriented X3, Other (drowsy) HEENT: Atraumatic, PERRLA Respiratory: Clear to auscultation, Normal air movement Cardiovascular: Normal S1, Normal S2, No murmurs, Other (SR-ST) Abdominal: Normal bowel sounds, Soft, No hepatospenomegaly Extremities: No clubbing, No cyanosis, No edema, Normal pulses Skin: No rashes, No breakdown, No significant lesion Neuro: Normal gait, Normal speech, Strength at 5/5 X4 ext Psych/Mental Status: Mental status NL, Mood NL Labs/Xrays Labs Test 05/04/25 04:07 Range/Units White Blood Count 7.3 4.4-10.8 10^3/uL Red Blood Count 5.39 4.5-5.90 10^6/uL Hemoglobin 16.7 13.5-17.5 g/dL Hematocrit 49.0 41.0-53.0 % Mean Corpuscular Volume 90.8 80.0-100.0 fL Mean Corpuscular Hemoglobin 31.0 28.0-32.0 pg Mean Corpuscular Hemoglobin Concent 34.2 32.0-36.0 g/dL Red Cell Distribution Width 12.8 11.8-14.3 % Platelet Count 215 140-450 10^3/uL Mean Platelet Volume 8.8 6.9-10.8 fL Neutrophils (%) (Auto) 69.2 37.0-80.0 % Lymphocytes (%) (Auto) 20.6 10.0-50.0 % Monocytes (%) (Auto) 8.5 0.0-12.0 % Eosinophils (%) (Auto) 1.4 0.0-7.0 % Basophils (%) (Auto) 0.3 0.0-2.0 % Neutrophils # (Auto) 5.0 1.6-8.6 10 ^3/uL Lymphocytes # (Auto) 1.5 0.4-5.4 10 ^3/uL Monocytes # (Auto) 0.6 0-1.3 10 ^3/uL Eosinophils # (Auto) 0.1 0-0.8 10 ^3/uL Basophils # (Auto) 0 0-0.2 10 ^3/uL Nucleated Red Blood Cells 0.2 % Sodium Level 142 136-145 mmol/L Potassium Level 3.3 L 3.5-5.1 mmol/L Chloride Level 104 98-107 mmol/L Carbon Dioxide Level 26 20-31 mmol/L Anion Gap 12 5-15 Blood Urea Nitrogen 15 9-23 mg/dL Creatinine 1.40 H 0.700-1.30 mg/dL Glomerular Filtration Rate Calc 70 >90 mL/min BUN/Creatinine Ratio 10.7 10.0-20.0 Serum Glucose 100 74-106 mg/dL Calcium Level 9.4 8.7-10.4 mg/dL Total Bilirubin 0.5 0.2-1.0 mg/dL Aspartate Amino Transferase (AST) 27 13-40 U/L Alanine Aminotransferase (ALT) 35 7-40 U/L Alkaline Phosphatase 82 46-116 U/L Total Protein 7.0 5.7-8.2 g/dL Albumin 4.7 3.2-4.8 g/dL EXAM: CT HEAD WITHOUT CONTRAST FINDINGS: There is no evidence of acute intracranial hemorrhage, extra-axial collection, mass effect, midline shift, herniation or hydrocephalus. The ventricles, sulci and cisterns are age appropriate. The anderson-white differentiation is intact. The visualized paranasal sinuses and mastoid air cells are clear. No depressed calvarial fracture. The surrounding soft tissues are unremarkable. IMPRESSION: 1. No evidence of acute intracranial abnormality. EXAM: XY L WRIST 2 VIEW XRAY FINDINGS/IMPRESSION: There is no evidence of acute fracture or dislocation. The visualized joint space is well maintained. The alignment is anatomical. There is no radiopaque foreign body. SEPSIS Sepsis Screen Date sepsis recognized/suspect: May 04, 2025 Time Sepsis recognized/suspect: 607 Recent Procedure: No On Antibiotic Therapy: No Respiratory Rate >20: No Heart Rate >90: No Temp<36 C (96.8 F) or >38.3 C: No SBP <90 or MAP <65 mmHG: No New Acute Mental Status Change: No Is the patient on CPAP, BIPAP,: No Physician Orders Drug Screen (05/04/25 03:53) Urinalysis (05/04/25 03:53) Seizure Precautions (05/04/25 ) Titrate Oxygen (05/04/25 03:53) Oxygen (05/04/25 ) Continous Pulse Oximetry (05/04/25 03:53) Saline Lock (05/04/25 03:53) Centrifugal Chiller Technician (05/04/25 ) Head Without Contrast (05/04/25 03:53) L Wrist 2 View Xray (05/04/25 03:53) * Neurology Consult (05/04/25 04:53) Admit (05/04/25 10:08) Code Status (05/04/25 10:08) Sodium Chloride Lock (Saline Lock Ns) (05/04/25 14:00) Hydrocodone-Acet 5/325mg Tab (Scio 5/32 (05/04/25 10:15) Ondansetron Hcl (Zofran) (05/04/25 10:15) Docusate Sodium Capsule (Colace Capsule) (05/04/25 10:15) Complete Blood Count (05/05/25 04:00) Comprehensive Metabolic Panel (05/05/25 04:00) Condition: Serious (05/04/25 10:08) Acetaminophen Tablet (Tylenol Tablet) (05/04/25 10:15) Nitroglycerin Sublingual (Ntrostat Subli (05/04/25 10:15) Morphine Sulfate Injection (05/04/25 10:15) Stat Ekg For Chest Pain (05/04/25 10:08) Notify Of Changes From Base (05/04/25 10:08) Gas Line Installer Supervisor For 24 Hours (05/04/25 10:08) Emergency Dysrhythmia Protocol (05/04/25 10:08) Rhythm Strips Once Every Shift (05/04/25 10:08) Oxygen By Nasal Cannula (05/04/25 10:08) Carbamazepine Tablet (Tegretol Tablet) (05/04/25 14:00) Vital Signs Date Time Temp Pulse Resp B/P (MAP) Pulse Ox O2 Delivery O2 Flow Rate FiO2 05/04/25 07:33 97.8 85 21 133/82 (99) 95 97.8 05/04/25 06:04 98.3 107 20 148/77 (100) 95 98.3 05/04/25 06:04 100 20 95 Room Air* 0 21 05/04/25 03:34 98.8 90 18 130/87 99 98.8 Laboratory Tests Test 05/04/25 04:07 White Blood Count 7.3 10^3/uL (4.4-10.8) Medications Medications Dose Ordered Sig/Etelvina Route Start Time Stop Time Status Last Admin Dose Admin Levetiracetam 100 ml @ 400 mls/hr ONCE ONCE IV 05/04/25 04:00 05/04/25 04:14 DC 05/04/25 04:00 400 MLS/HR Ondansetron HCl 4 mg ONCE ONCE IV 05/04/25 04:00 05/04/25 04:01 DC 05/04/25 04:00 4 MG Sodium Chloride 1,000 ml @ 1,000 mls/hr Q1H ONCE IV 05/04/25 04:00 05/04/25 04:59 DC 05/04/25 04:00 1,000 MLS/HR Assessment/Plan Assessment/Plan Assessment: Breakthrough seizure, Acute kidney injury, Hypokalemia, Plan: Admit to Tele, Neurology consult, IV hydration, Seizure precautions. PRN Ativan for seizure, Manage/Monitor electrolytes closely, Home medications reconciled, Plan discussed with: Patient, Other (Mother, girlfriend) My Orders Orders - VIKI FORREST Procedure Category Date Status Time Admit ADMIT 05/04/25 Transmitted 10:08 Code Status CODE 05/04/25 Transmitted 10:08 Sodium Chloride Lock PHA 05/04/25 Logged (Saline Lock Ns) 14:00 Hydrocodone-Acet PHA 05/04/25 Logged 5/325mg Tab (Scio 10:15 Ondansetron Hcl PHA 05/04/25 Logged (Zofran) 10:15 Docusate Sodium PHA 05/04/25 Logged Capsule (Colace 10:15 Complete Blood Count LAB 05/05/25 Verified 04:00 Comprehensive LAB 05/05/25 Verified Metabolic Panel 04:00 Condition: Serious JACI 05/04/25 In Process 10:08 Acetaminophen Tablet PHA 05/04/25 Logged (Tylenol Tablet) 10:15 Nitroglycerin PHA 05/04/25 Logged Sublingual (Ntrostat 10:15 Morphine Sulfate PHA 05/04/25 Logged Injection 10:15 Stat Ekg For Chest JACI 05/04/25 In Process Pain 10:08 Notify Md Of Changes [facility] 05/04/25 In Process From Base 10:08 Gas Line Installer Supervisor For [facility] 05/04/25 In Process 24 Hours 10:08 Emergency Dysrhythmia [facility] 05/04/25 In Process Protocol 10:08 Rhythm Strips Once [facility] 05/04/25 In Process Every Shift 10:08 Oxygen By Nasal RT 05/04/25 Transmitted Cannula 10:08 Carbamazepine Tablet PHA 05/04/25 Logged (Tegretol Tablet) 14:00 Date of Service: May 04, 2025 Billing Provider: VIKI FORREST Common Visit Codes: [id number] INP/OBS CARE (MOD) VIKI FORREST May 04, 2025 10:46
[2025-05-04] MEDS: POTASSIUM EFFERVESENT TAB 25 MEQ PO ONE ×2 (11:39)
[2025-05-04] MEDS: HYDROcodone-ACET 5/325MG TAB PO PRN (11:41)
[2025-05-04 12:01] VITALS: BP 127/66; PULSE 78; RESP 18; O2SAT 95
[2025-05-04] MEDS ORDERED: SODIUM CHLOR 0.9% PF (SALINE LOCK) 10ML VIAL/SYR IV SCH (14:00)
[2025-05-04] MEDS ORDERED: carBAMazepine 200 MG TAB PO SCH (14:00)
== END 2025-05-04 12:00 | disposition home or self-care (01) | DRG 53 ==
LOC: EDBD 03:26 → EDUNIT# 03:26 → ER 03:26 → EDSEX 03:26 → OVERFLOW 10:08
PROVIDERS: ADMIT Nurse Practitioner Family; ATTEND Nurse Practitioner Family
DX: G40.409 Other generalized epilepsy and epileptic syndromes, not intractable, without status epilepticus (principal); N17.9 Acute kidney failure, unspecified; E87.6 Hypokalemia; Z87.440 Personal history of urinary (tract) infections
CPT/HCPCS: 36415; 70450; 73100; 80053; 80307; 81001; 85025; 96361; 96365; 96375; G0378; J2405